=== PATIENT | female | born 1960 | race Caucasian/White ===

== ENCOUNTER 2017-10-01 21:06 | Emergency (ER) | payer OTHER ==
[2017-10-01 21:23] VITALS: BP 111/56; PULSE 64; TEMP 98.5; BMI 21.1
[2017-10-01] MEDS ORDERED: FAMOTIDINE 20 MG TABLET PO ONE (21:34)
--- NOTE | 2017-10-01 21:34 | PDOC ---
History of Present Illness - General History Source: Patient Exam Limitations: No Limitations - History of Present Illness Initial Comments: 10/01/17 21:45 The patient is a 57 year old female with a past medical history of mild anemia and B12 deficiency who presents to the ED s/p wasp sting earlier today. The patient states she was in her garden, hunched over driscoll when a wasp stung her on the left side of her face, near her eye. She states as she flung the wasp away with her right hand, the wasp stung her again on her right hand. Patient states she began to develop an itchy rash throughout her body secondary to being stung by the wasp; her bilateral upper extremities, back, abdomen, genital area, and bilateral lower extremities. She states this incident occurred an hour and a half prior to arrival to the ED. Denies swelling or uncomfortable sensation in the throat. Denies chest tightness. Denies abdominal pain, nausea, vomiting, or diarrhea. Denies any other symptoms. Family hx: Patients sister had an anaphylactic reaction to a bee sting. <Jazmyn López - Last Filed: 10/01/17 21:45> <Bryce Ruelas - Last Filed: 10/01/17 21:54> - General Chief Complaint: Bite Stated Complaint: WASP STINGS Time Seen by Provider: 10/01/17 21:13 Past History <Jazmyn López - Last Filed: 10/01/17 21:45> - Past Medical History Anemia: No Asthma: No Cancer: No Cardiac Disorders: No CVA: No COPD: No CHF: No Dementia: No Diabetes: No GI Disorders: No Disorders: No HTN: No Hypercholesterolemia: No Liver Disease: No Seizures: No Thyroid Disease: No - Suicide/Smoking/Psychosocial Hx Smoking History: Never smoked Hx Alcohol Use: No Drug/Substance Use Hx: No Substance Use Type: None Hx Substance Use Treatment: No <Bryce Ruelas - Last Filed: 10/01/17 21:54> - Past Medical History Allergies/Adverse Reactions: Allergies Allergy/AdvReac Type Severity Reaction Status Date / Time No Known Allergies Allergy Verified 01/21/16 16:15 Home Medications: Ambulatory Orders Multivitamins [Multivit ([facility])] 1 tab PO DAILY 01/21/16 Diphenhydramine [Benadryl -] 50 mg PO Q6H #20 capsule 10/01/17 Famotidine [Pepcid] 20 mg PO BID #10 tablet 10/01/17 Review of Systems - Review of Systems Able to Perform ROS?: Yes Comments:: 10/01/17 21:45 CONSTITUTIONAL: Absent: fever, chills, diaphoresis, generalized weakness, malaise, loss of appetite HEENT: Absent: rhinorrhea, nasal congestion, throat pain, throat swelling, difficulty swallowing, mouth swelling, ear pain, eye pain, visual Changes CARDIOVASCULAR: Absent: chest pain, syncope, palpitations, irregular heart rate, lightheadedness , peripheral edema RESPIRATORY: Absent: cough, shortness of breath, dyspnea with exertion, orthopnea, wheezing, stridor, hemoptysis GASTROINTESTINAL: Absent: abdominal pain, abdominal distension, nausea, vomiting, diarrhea, constipation, melena, hematochezia GENITOURINARY: Absent: dysuria, frequency, urgency, hesitancy, hematuria, flank pain, genital pain MUSCULOSKELETAL: Absent: myalgia, arthralgia, joint swelling SKIN: + wasp sting, rash, itching Absent: pallor HEMATOLOGIC/IMMUNOLOGIC: Absent: easy bleeding, easy bruising, lymphadenopathy, frequent infections ENDOCRINE: Absent: unexplained weight gain, unexplained weight loss, heat intolerance, cold intolerance NEUROLOGIC: Absent: headache, focal weakness or paresthesias, dizziness, unsteady gait, seizure, mental status changes, bladder or bowel incontinence PSYCHIATRIC: Absent: anxiety, depression, suicidal or homicidal ideation, hallucinations. All Other Systems: Reviewed and Negative <Jazmyn López - Last Filed: 10/01/17 21:45> *Physical Exam - Vital Signs Last Vital Signs Temp Pulse Resp BP Pulse Ox 98.5 F 64 16 111/56 97 10/01/17 21:18 10/01/17 21:18 10/01/17 21:18 10/01/17 21:18 10/01/17 21:18 - Physical Exam Comments: 10/01/17 21:46 GENERAL: Well developed, well nourished. Awake and alert. No acute distress. Cheerful and Cooperative. HEENT: Throat is clear without any evidence of angioedema. Normocephalic, atraumatic. PERRLA, EOMI. No conjunctival pallor. Sclera are non- icteric. Moist mucous membranes. NECK: Supple. Full ROM. No JVD. Carotid pulses 2+ and symmetric, without bruits. No thyromegaly. No lymphadenopathy. CARDIOVASCULAR: Regular rate and rhythm. No murmurs, rubs, or gallops. Distal pulses are 2+ and symmetric. PULMONARY: Lungs are clear with full breath sounds bilaterally. No wheezing, rales or rhonchi. ABDOMINAL: Soft. Non-tender. Non-distended. No rebound or guarding. No organomegaly. Normoactive bowel sounds. MUSCULOSKELETAL Normal range of motion at all joints. No bony deformities or tenderness. No CVA tenderness. EXTREMITIES: No cyanosis. No clubbing. No edema. No calf tenderness. SKIN: + There are bee stings of the left cheek and lower eyelid, as well as the volar aspect of the right wrist. There is errythma and edema which is mild of both hands. There is diffuse urticaria of the back and abdomen, which is also mild. NEUROLOGICAL: Alert, awake, appropriate. Cranial nerves 2-12 intact. No deficits to light touch and temperature in face, upper extremities and lower extremities. No motor deficits in the in face, upper extremities and lower extremities. Normoreflexic in the upper and lower extremities. Normal speech. Toes are down- going bilaterally. Gait is normal without ataxia. PSYCHIATRIC: Cooperative. Good eye contact. Appropriate mood and affect. <Jazmyn López - Last Filed: 10/01/17 21:45> - Vital Signs Last Vital Signs Temp Pulse Resp BP Pulse Ox 98.5 F 64 16 111/56 97 10/01/17 21:18 10/01/17 21:18 10/01/17 21:18 10/01/17 21:18 10/01/17 21:18 <Bryce Ruelas - Last Filed: 10/01/17 21:54> ED Treatment Course - Medications Given in the ED: ED Medications Discontinued Medications Generic Name Dose Route Start Last Admin Trade Name Freq PRN Reason Stop Dose Admin Famotidine 20 mg 10/01/17 21:34 10/01/17 21:41 Pepcid - PO 10/01/17 21:35 20 mg ONCE ONE Administration <Jazmyn López - Last Filed: 10/01/17 21:45> Medical Decision Making - Medical Decision Making 10/01/17 21:52 Patient is approximately 2 hours post wasp stings with mild angioedema of the hands and wrists, and mild diffuse urticaria, but no sign of airway, lung, or abdominal involvement. To continue H1 and H2 blockers, careful observation by her and return to ER if there are any further symptoms. In no distress and fully ambulatory upon discharge. <Bryce uRelas - Last Filed: 10/01/17 21:54> *DC/Admit/Observation/Transfer - Attestations Scribe Attestion: 10/01/17 21:46 Documentation prepared by Jazmyn López, acting as caregivers non medical for Bryce Hubbard MD <Jazmyn López - Last Filed: 10/01/17 21:45> - Discharge Dispostion Decision to Admit order: No <Bryce Ruelas - Last Filed: 10/01/17 21:54> Diagnosis at time of Disposition: Allergic reaction to bee sting - Discharge Dispostion Disposition: HOME Condition at time of disposition: Stable - Prescriptions Prescriptions: Diphenhydramine [Benadryl -] 50 mg PO Q6H #20 capsule Famotidine [Pepcid] 20 mg PO BID #10 tablet - Referrals Referrals: Chey Francis MD [Primary Care Provider] - 2 Days - Patient Instructions Printed Discharge Instructions: How to Care for an Insect Bite or Sting Additional Instructions: Avoid hot baths or showers. Cool compresses. Elevate the arms and hands to reduce swelling Medications as directed Return to ER immediately if symptoms worsen or if any additional symptoms develop, especially irritation of the throat, tightness of the chest, or abdominal discomfort. Otherwise follow-up with primary physician one to 2 days. - Post Discharge Activity
[2017-10-01] MEDS ORDERED: FAMOTIDINE 20 MG TABLET ONE (21:40)
== END 2017-10-01 21:48 | disposition home or self-care (01) ==
LOC: FER 21:06
DX: L29.9 Pruritus, unspecified (principal); T63.441A Toxic effect of venom of bees, accidental (unintentional), initial encounter; Y92.007 Garden or yard of unspecified non-institutional (private) residence as the place of occurrence of the external cause; Y93.89 Activity, other specified
CPT/HCPCS: 99281-25